=== PATIENT | female | born 1950 | race Caucasian/White ===

== ENCOUNTER 2016-09-29 11:36 | Inpatient (IN) ==
[2016-09-29] MEDS ORDERED: ASPIRIN PO STA (11:55)
[2016-09-29] MEDS ORDERED: NITROGLYCERIN SL PRN (11:55)
[2016-09-29] MEDS ORDERED: CARDIZEM IV ONE (12:14)
--- NOTE | 2016-09-29 12:22 | ED EKG INTERP ---
EKG Interpretation - EKG Time of EKG reading by physician:: 11:57 EKG Read and Signed by:: Gulshan Nagel EKG Interpretation (*Must complete 3 of following elements*): Abnormal Rate: 140 Rhythm: atrial fibrillation with rapid ventricular response QRS: normal ST Wave: non-specific ST changes Physician Attestation
[2016-09-29] MEDS: CARDIZEM 100 MG/NS 100 ML IV SCH ×2 (12:34→22:04)
[2016-09-29 12:42] LABS: MANUAL DIFF NEEDED? NO
[2016-09-29 13:06] LABS: BASO% 0.6 % (0.0-0.8); EOS# 0.14 X1000 (0.0-0.7); EOS% 2.2 % (0.0-10.0); HEMATOCRIT 40.9 % (37.0-47.0); HEMOGLOBIN 13.2 g/dL (12.0-16.0); LYMPH# 1.33 X1000 (1.2-3.4); LYMPH% 20.7 % (20.5-51.1); MCH 31.3 PG (27-31); MCHC 32.3 g/dL (33-37); MCV 96.9 FL (81-99); MONO% 7.8 % (1.7-9.3); MPV 10.6 FL (7.4-10.4); NEUT% 68.7 % (42.2-75.2); PLT 191 X1000 (130-400); RBC 4.22 XMIL (4.2-5.4)
[2016-09-29 13:15] LABS: PTT 36.2 Seconds (22.0-36.0)
[2016-09-29 13:23] LABS: AGAP 13; ALBUMIN 3.8 g/dL (3.5-5.0); ALKALINE PHOSPHATASE 85 U/L (32-104); BUN 9 mg/dL (8-22); CALCIUM 8.5 mg/dL (8.8-10.2); CHLORIDE 100 mmol/L (98-107); CK PROFILE 66 U/L (24-173); COSMO 294; GOT 23 U/L (10-30); GPT 15 U/L (10-36); MAGNESIUM 1.9 mg/dL (1.5-2.7); POTASSIUM 4.4 mmol/L (3.5-5.1); SODIUM 136 mmol/L (136-145); TCO2 23 mmol/L (25-35); TOTAL BILIRUBIN 1.06 mg/dL (0.20-1.00); TOTAL PROTEIN 6.4 g/dL (6.3-8.3)
[2016-09-29 13:24] LABS: INR 2.25; PROTIME 24.1 Seconds (9.2-11.7)
[2016-09-29] MEDS ORDERED: HUMULIN R IV ONE (13:28)
--- NOTE | 2016-09-29 14:50 | Diag Imaging Result Document ---
PROCEDURE NAME: CHEST-PORTABLE - 09/29/2016 SINGLE FRONTAL RADIOGRAPH OF THE CHEST: COMPARISON: 08/23/2016. FINDINGS: Inspiration is suboptimal. The lungs are grossly clear. There is no definite pleural fluid collection. Median sternotomy wires are noted. Cardiac silhouette is grossly stable. IMPRESSION: No definite acute pathology by plain radiograph.
--- NOTE | 2016-09-29 14:57 | PROVIDER DOCUMENTATION ---
HPI-Cardiac General - General Chief Complaint: Chest Pain Stated Complaint: CP Time Seen by Provider: 09/29/16 12:11 Source: patient Allergies/Adverse Reactions: Patient Allergies Allergy/AdvReac Type Severity Reaction Status Date / Time Beta-Blockers Allergy Severe bronchospas Verified 09/29/16 12:48 (Beta-Adrenergic Bloc m Home Medications: Glipizide [Glucotrol] 10 mg PO BID 06/29/12 Spironolactone [Aldactone] 25 mg PO DAILY 06/29/12 Latanoprost 0.005% Oph Soln [Xalatan 0.005% Oph Soln] 1 drop BOTH EYES QHS 07/31 Warfarin [Coumadin] 2 mg PO QHS 02/04/14 Clonidine HCl [Clonidine HCl ER] 0.1 mg PO BID 06/29/16 Insulin Lispro [Humalog] 15 unit SQ TID 06/29/16 Metformin [Glucophage] 500 mg PO 4XDAY 06/29/16 Potassium Chloride 10 meq PO QAM 06/29/16 Terconazole 80 mg VG QAM 06/29/16 Digoxin 125 mcg PO DAILY 08/23/16 Diltiazem HCl [Cardizem Cd] 120 mg PO HS 08/23/16 - History of Present Illness-Cardiac Nature of Presenting Problem: 66 yo F presents to ED with cc of chest discomfort, tachycardia, and mild dyspnea. Pt has hx of Afib, HTN, and IDDM. Upon arrival pt is in no apparent distress. Quality of Pain: reports: fullness Onset/Duration: abrupt Timing: gone now Context/Activities at Onset: reports: none History of arrythmia: reports: A-Fib Prior Chest Pain/Cardiac Workup: reports: echocardiography Associated Symptoms: reports: shortness of breath. denies: abdominal pain, back pain Similar Symptoms Previously?: Yes Review of Systems - Adult - REVIEW OF SYSTEMS - ADULT Constitutional: reports: no symptoms reported. denies: chills, fever Eyes: reports: no symptoms reported. denies: discharge, dry eyes Ears, Nose, Mouth & Throat: reports: no symptoms reported. denies: ear pain, nose pain Cardiovascular: reports: chest pain, irregular heart rate, orthopnea, palpitations Respiratory: reports: no symptoms reported. denies: cough, hemoptysis Gastrointestinal: reports: no symptoms reported. denies: abdominal pain, hematemesis Genitourinary: reports: no symptoms reported. denies: dysuria, discharge Musculoskeletal: reports: no symptoms reported. denies: bone pain, back pain Integumentary: reports: no symptoms reported. denies: hives, itching Neurological: reports: no symptoms reported. denies: ataxia, dizziness/vertigo Psychiatric: reports: no symptoms reported. denies: anxiety, anti-depressant use Endocrine: reports: no symptoms reported. denies: cold intolerance, heat intolerance Hematologic/Lymphatic: reports: no symptoms reported. denies: blood clots, easy bruising Allergic/Immunologic: reports: no symptoms reported. denies: allergic reactions , eczema All Other Systems: Reviewed and Negative Past History - Adult - PAST MEDICAL HISTORY-ADULT Review of Records: reports: Old Records Reviewed, Nursing Assessment Review, Medications Reviewed Cardiovascular: reports: A-Fib, CHF, HTN, heart valve problem, hyperlipidemia Endocrine/Immune: reports: Diabetes, other (glacuoma, sleep apena) Diabetes controlled by:: Insulin Dependent - PRIOR SURGERIES/PROCEDURES Surgical/Procedure History: reports: CABG, tonsillectomy, other (Valve replacement) - PRIOR HOSPITALIZATIONS Prior Hospitalizations: reports: for similar symptoms - IMMUNIZATION STATUS Childhood Immunizations: See Nurse Assessment Flu Vaccine: See Nurse Assessment - FAMILY HISTORY Family History: reviewed, not pertinent Physical Exam-General - PHYSICAL EXAM-ADULT Initial Vital Signs Reviewed: Yes - CONSTITUTIONAL General Appearance: appears well, alert, no apparent distress - EYES Eyes: PERRL/EOMI, pink conjunctivae - HEAD, EARS, NOSE, MOUTH & THROAT HENMT: normocephalic/atraumatic, moist mucous membranes - NECK Neck: non-tender, full range of motion - RESPIRATORY Respiratory: chest non-tender, lungs clear, normal breath sounds - CARDIOVASCULAR Cardiovascular: tachycardia, irregularly irregular - GASTROINTESTINAL (ABDOMEN) Abdominal Exam: non tender, soft - LYMPHATIC Lymphatic: no adenopathy - MUSCULOSKELETAL Back Exam: normal inspection, no vertebral tenderness Extremity: normal range of motion, non-tender, normal gait - SKIN Integumentary: rash (Ringworm left dorsal toes) - NEUROLOGIC Neurologic: grossly normal, no motor/sensory deficits - PSYCHIATRIC Psych/Mental Status: normal mood/affect, normal thought content, normal thought process, oriented x 3 Progress - PLAN OF CARE/RESULTS Progress/Plan/Lab Results: Vital Signs - 24 hr 09/29/16 09/29/16 12:06 13:06 Temperature 97.7 F Pulse Rate 143 H 104 H Respiratory 16 18 Rate Blood Pressure 129/89 121/88 O2 Sat by Pulse 97 98 Oximetry Orders Category Date Time Status Cardiac Monitoring DIRECTED Care 09/29/16 11:55 Active FSBS [Finger Stick Blood Sugar (ED)] DIRECTED Care 09/29/16 14:09 Active Saline Loc NOW Care 09/29/16 11:55 Active cxr [CHEST-PORTABLE] [RAD] Stat Exams 09/29/16 12:30 Draft CBC WITH ELECTRONIC DIFF [HEME] Stat Lab 09/29/16 12:20 Completed CK PROFILE [SP CHEM] Stat Lab 09/29/16 12:20 Completed COMPREHENSIVE METABOLIC PANEL [CHEM] Stat Lab 09/29/16 12:20 Completed D-DIMER [CHEM] Stat Lab 09/29/16 12:20 Completed MAGNESIUM [CHEM] Stat Lab 09/29/16 12:20 Completed PRO B-NATRIURETIC PEPTIDE Stat Lab 09/29/16 12:20 Completed PROTIME WITH INR [COAG] Stat Lab 09/29/16 12:20 Completed PTT [COAG] Stat Lab 09/29/16 12:20 Completed TROPONIN T Stat Lab 09/29/16 12:20 Completed Aspirin Med 09/29/16 11:55 Discontinued 325 mg PO STAT STA Diltiazem 100 mg/Ns [Cardizem 100 mg/Ns] 100 ml Med 09/29/16 12:15 Active IV 10 mg/hr Diltiazem [Cardizem] Med 09/29/16 12:14 Discontinued 20 mg IV NOW ONE Insulin Human Regular [Humulin R] Med 09/29/16 13:28 Discontinued 10 unit IV NOW ONE Nitroglycerin Sl [Nitroglycerin] Med 09/29/16 11:55 Active 0.4 mg SL Q5M PRN PRN EKG [EKG] Stat Ther 09/29/16 11:55 Ordered Laboratory Tests 09/29/16 09/29/16 09/29/16 12:20 12:20 12:20 WBC 6.42 RBC 4.22 Hgb 13.2 Hct 40.9 MCV 96.9 MCH 31.3 H MCHC 32.3 L RDW Std Deviation 15.4 H Plt Count 191 MPV 10.6 H Neut % (Auto) 68.7 Lymph % (Auto) 20.7 [place] % (Auto) 7.8 Eos % (Auto) 2.2 Baso % (Auto) 0.6 Neut # (Auto) 4.41 Lymph # (Auto) 1.33 [place] # (Auto) 0.50 Eos # (Auto) 0.14 Baso # (Auto) 0.04 PT INR PTT (Actin FS) D-Dimer 0.30 Sodium 136 Potassium 4.4 Chloride 100 Carbon Dioxide 23 L Anion Gap 13 BUN 9 Creatinine 0.9 Estimated GFR/1.73 m2 > 60 BUN/Creatinine Ratio 10 Glucose 520 H* Calculated Osmolality 294 Calcium 8.5 L Magnesium 1.9 Total Bilirubin 1.06 H AST 23 ALT 15 Alkaline Phosphatase 85 Creatine Kinase 66 Troponin T Cxl-[id number]-Vboedzvqgat Pept Total Protein 6.4 Albumin 3.8 Globulin 2.6 Albumin/Globulin Ratio 1.5 09/29/16 09/29/16 09/29/16 12:20 12:20 12:20 WBC RBC Hgb Hct MCV MCH MCHC RDW Std Deviation Plt Count MPV Neut % (Auto) Lymph % (Auto) [place] % (Auto) Eos % (Auto) Baso % (Auto) Neut # (Auto) Lymph # (Auto) [place] # (Auto) Eos # (Auto) Baso # (Auto) PT 24.1 H INR 2.25 PTT (Actin FS) 36.2 H D-Dimer Sodium Potassium Chloride Carbon Dioxide Anion Gap BUN Creatinine Estimated GFR/1.73 m2 BUN/Creatinine Ratio Glucose Calculated Osmolality Calcium Magnesium Total Bilirubin AST ALT Alkaline Phosphatase Creatine Kinase Troponin T < 0.010 Ftm-M-Qkbrnoaddle Pept 708 H Total Protein Albumin Globulin Albumin/Globulin Ratio - XRAY 1 XRAY Study: Chest XRAY Interpretation: NAD - CONSULTS/PCP/HOSPITALIST Notification #1 *Consult/PCP/Hospitalist*: Dr. Blount Time Discussed: 15:10 Reason/Comments: PCP Consult Disposition: other Attestation - Scribe Verification/Attestation Scribe:: Taryn Goyal Acting as Scribe for:: Gulshan Nagel Scribe documention review:: This chart was documented by a scribe and accurately reflects the service the provider performed and the decisions made by the provider.
[2016-09-29] MEDS: HUMALOG SUBQ SCH (17:51)
[2016-09-29] MEDS ORDERED: MIRALAX PO PRN (18:08)
--- NOTE | 2016-09-29 18:57 | HISTORY AND PHYSICAL ---
CHIEF COMPLAINT: Chest pain and heart palpitations. HISTORY OF PRESENT ILLNESS: The patient is a 66-year-old, white female with previous history of atrial fibrillation. She has had to be cardioverted in the past. Two days ago she started having irregular heartbeats. She had run out of her Multaq that had been started initially by her cardroom worker. She came in the office 1 day and I actually wrote her a prescription for it to keep her from having to go to see the cardroom worker that day to get her prescription. She never had it refilled. I am not sure whether there were refills on it or not. Generally I would put refills on unless I thought she was going to eventually go back to the cardroom worker for her refills. She did not check this and she did not call my office to see about my coverage giving her a prescription. She says [facility] but the call was not returned so she was a few days off of the Multaq and then apparently went into atrial fibrillation and today developed a very fast heart rate of about 140 beats per minute. She was placed on a Cardizem drip in the emergency room to control her rate and she was given insulin in that she is diabetic and her blood sugar was 520. PAST HISTORY INCLUDES: Diabetes mellitus, hypertension, glaucoma, status post aortic valve replacement, kidney disease. SURGICAL HISTORY: Includes cataract surgery, tonsillectomy, right ankle surgery, rotator cuff repair, hemorrhoidectomy and a valve replacement. FAMILY HISTORY: Shows father had heart disease. Mother had Alzheimer's disease and heart disease. Father had prostate cancer and had diabetes. Father had hypertension. Cousins had kidney failure. SOCIAL HISTORY: Has never used tobacco or alcohol. ALLERGIES: Include beta blockers, as she gets a difficulty breathing with these so it is not a true allergy but the side effect as it makes her heart failure worse and some of her COPD worse and she has had some asthma/COPD. 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 She has sleep apnea. HOME MEDICATIONS: Include Lantus insulin 35 units in the morning, 65 units at bedtime. Spironolactone 25 mg daily. Xalatan 0.005% 1 drop to each eye at bedtime. Symbicort 160/4.5, 2 puffs every 12 hours. Potassium chloride 10 mEq once daily. Estrace cream. Clonidine 0.1 mg twice daily for blood pressure. Lasix 40 mg by mouth on Mondays and . Cardizem CD 300 mg tablet daily and a 120 mg tablet daily. Coumadin 2 mg daily at bedtime. Multaq 400 mg p.o. b.i.d. Metformin 500 mg p.o. q.i.d. Colace 1 mg p.o. b.i.d. Digoxin 125 mcg daily. Aspirin 81 mg daily. Pravastatin 80 mg daily. MiraLAX 17 g daily. Glipizide 10 mg p.o. b.i.d. Humalog 15 mg subcutaneously 3 times a day with meals or with each meal. That is what we have listed as her medications. REVIEW OF SYSTEMS: Neurological: Denies headaches, seizures, visual problems, hearing problems. Pulmonary: Denies cough, wheezing but has had some chest pain and heart palpitations. Cardiovascular: Has had heart palpitations, chest pains. GI: Denies hematochezia, hematemesis, melena, constipation, diarrhea. : Denies any difficulty with urination. Musculoskeletal: Has had some osteoarthritis symptoms at times. Does not bother her too badly. Endocrine: Does have diabetes. Has had a thyrotoxicosis in the past when she was on amiodarone. PHYSICAL EXAMINATION: Pulse was 143 beats per minute and irregularly irregular when she first came emergency room. Blood pressure 129/89, respirations 16, O2 saturation was 97%. Since her Cardizem drip her pulse rate is down to 98 beats per minute and blood pressure is stable. HEENT: She is normocephalic. EOMs intact. PERRLA. Throat clear. Fundi are benign. NECK: Supple without thyromegaly, lymphadenopathy, or carotid bruits. LUNGS: Clear to auscultation and percussion without rhonchi, rales, or wheezes. HEART: Irregularly irregular without murmurs, gallops, or friction rubs. ABDOMEN: Soft. Active bowel sounds. No organomegaly or tenderness. LYMPHATIC: Lymph nodes are nonpalpable in the cervical and supraclavicular areas. INTEGUMENT: Shows no lesions consistent with melanoma or other skin cancers. NEUROLOGICAL: Cranial nerves 2-12 intact grossly. Sensory and motor intact. Reflexes 1+ all. LABORATORY: Shows a white count of 6420, hemoglobin 13.2, hematocrit 40.9, platelet count 191,000. Pro time is 24.1, INR is 2.25, PTT is 36.2. D-dimer is 0.30. Chemistry profile is essentially normal except for a blood sugar of 520. She has been given some insulin. ProBNP was slightly up at 708. Troponin was less than 0.010. ASSESSMENT: Atrial fibrillation with rapid ventricular response. SECONDARY DIAGNOSES: Of diabetes mellitus uncontrolled, glaucoma, hypertension, status post aortic valve replacement, asthma/COPD, hyperlipidemia. PLAN: We will admit and consult Cardiology. Is on a Cardizem drip. Will restart Multaq. Will control diabetes.
[2016-09-29] MEDS: COUMADIN PO SCH (20:43)
[2016-09-29] MEDS: HUMULIN R SUBQ SCH (20:43)
[2016-09-29] MEDS: GLUCOPHAGE PO SCH (20:43)
[2016-09-29] MEDS: COLACE PO SCH (20:43)
[2016-09-29] MEDS: CARDIZEM CD PO SCH (20:43)
[2016-09-29] MEDS: XALATAN 0.005% OPH SOLN BOTH EYES SCH (20:44)
[2016-09-29] MEDS: PRAVACHOL PO SCH (20:52)
[2016-09-29] MEDS: MULTAQ PO SCH (20:56)
[2016-09-29] MEDS ORDERED: TYLENOL PO PRN (22:44)
[2016-09-30] MEDS ORDERED: G.I. COCKTAIL PO ONE (00:14)
[2016-09-30] MEDS ORDERED: BLISTEX MEDICATED BERRY LIP BALM TOP PRN (04:02)
[2016-09-30] MEDS: NORCO-5 PO PRN ×3 (04:10→18:25)
--- NOTE | 2016-09-30 06:08 | EKG Report ---
Test Performed on : 09/29/2016 11:57:51 AM Test Reason : Chest Pain Blood Pressure : / mmHG Vent. Rate : 140 BPM Atrial Rate : 131 BPM P-R Int : 000 ms QRS Dur : 090 ms QT Int : 318 ms P-R-T Axes : 000 -25 128 degrees QTc Int : 485 ms Atrial fibrillation. with rapid ventricular response. ST & T wave abnormality, consider lateral ischemia Abnormal ECG When compared with ECG of 24-AUG-2016 12:43, Atrial fibrillation. has replaced Sinus rhythm. Vent. rate has increased BY 65 BPM Unconfirmed Result
[2016-09-30] MEDS: HUMULIN R SUBQ SCH ×4 (06:25→21:00)
[2016-09-30] MEDS: CARDIZEM 100 MG/NS 100 ML IV SCH (07:38)
--- NOTE | 2016-09-30 08:21 | EKG Report ---
Test Performed on : 09/29/2016 10:14:35 PM Test Reason : Done by RT/No order in [facility] Blood Pressure : / mmHG Vent. Rate : 083 BPM Atrial Rate : 082 BPM P-R Int : 000 ms QRS Dur : 092 ms QT Int : 392 ms P-R-T Axes : 000 -36 092 degrees QTc Int : 460 ms Atrial fibrillation. Left axis deviation with left anterior fasicular block (LAFB) Nonspecific T wave abnormality Abnormal ECG When compared with ECG of 29-SEP-2016 11:57, (Unconfirmed) ST less depressed in in high-lateral leads 1 and AVL Afib is persistant but rate controlled Nonspecific T wave abnormality in far lateral leads Clinical Correlation advised Confirmed by Patrick Marti DO ([id number]) on 10/03/2016 3:43:53 PM
[2016-09-30] MEDS: HUMALOG SUBQ SCH ×3 (08:32→16:23)
[2016-09-30] MEDS: ASPIRIN PO SCH (08:32)
[2016-09-30] MEDS: COLACE PO SCH ×2 (08:32→20:15)
[2016-09-30] MEDS: GLUCOPHAGE PO SCH ×4 (08:32→20:15)
[2016-09-30] MEDS: LANOXIN PO SCH (08:32)
[2016-09-30] MEDS: MULTAQ PO SCH (08:33)
--- NOTE | 2016-09-30 08:57 | PROGRESS NOTE ---
DATE: 09/30/2016 CHIEF COMPLAINT: Patient says that she complains of a rash on her feet, but otherwise she is feeling better. OBJECTIVE: Vital Signs: Blood pressure is 127/90, respirations 18, pulse 88, temperature 98 degrees Fahrenheit. Heart: Irregularly irregular. She is still in atrial fibrillation. She is still on a Cardizem drip and she is started on oral Cardizem as well. We will taper her off of the Cardizem drip slowly. HEENT: She is normocephalic. PERRLA. Throat clear. Lungs: Clear to auscultation and percussion without rhonchi, rales, or wheezes. Heart: Irregularly irregular without murmurs, gallops, or friction rubs. Abdomen: Soft. Active bowel sounds without organomegaly or tenderness. Integument: This does show what looks like a fungal rash on the dorsum of her feet. We will start her on some Micatin cream. LABS: Blood sugar was 194, so that is under a little better control. PLAN: Continue care. Cardiology is to see, and we will see if they want to cardiovert her.
[2016-09-30] MEDS ORDERED: PATIENT'S OWN MED VAG SCH (09:00)
[2016-09-30] MEDS ORDERED: LASIX PO SCH (09:00)
[2016-09-30] MEDS: BAZA ANTIFUNGAL CREAM TOP SCH ×2 (09:25→20:14)
[2016-09-30] MEDS: CARDIZEM CD PO SCH ×3 (10:48→20:15)
[2016-09-30] MEDS: TOPROL XL PO SCH (13:21)
--- NOTE | 2016-09-30 13:32 | CONSULTATION ---
DATE OF CONSULTATION: 09/30/2016 REASON FOR CONSULTATION: Cardiology consulted for recurrent atrial fibrillation. HISTORY OF PRESENT ILLNESS: Ms. Doty is a 66-year-old, lady with history of recurrent atrial fibrillation, status post cardioversion times at least 4 times in the past and also has a bioprosthetic aortic valve replacement and comes with complaints of increasing palpitations. She was noted to have atrial fibrillation, rapid ventricular rate at a rate of 140 beats per minute. Started on a Cardizem drip. She has a significant history of having had problems with atrial fibrillation in the past. She was on amiodarone which resulted in thyrotoxicosis and as a result, amiodarone was discontinued. She was tried on flecainide. She is currently on Cardizem, digoxin and she was on Multaq following the last cardioversion. However, she missed the Multaq dose for a few days and she said she noticed increasing palpitations. She also has diabetes, has elevated blood sugars of 500 when she came in. She denies any chest pain. There is no dizziness. There is no syncope. She has shortness of breath which has been stable. She denies chest pain. PAST MEDICAL HISTORY: 1. Diabetes. 2. Hypertension. 3. Glaucoma. 4. Status post item bioprosthetic aortic valve replacement, Mario-Mendes on 03/09/2012. 5. Paroxysmal atrial fibrillation with repeated cardioversions in 2011, 03/06/2014, 03/15/2014. Last cardioversion in 07/21/2016. 6. She is on Coumadin therapy for stroke prophylaxis. 7. She had amiodarone induced thyrotoxicosis. 8. Failed atrial fibrillation with flecainide. 9. History of heart failure in the past. 10. She has bronchitis and COPD. 11. Hypertension. 12. Hyperlipidemia. 13. Diabetes. 14. Sleep apnea. 15. Last cardiac catheterization 03/02/2012, coronary arteries were normal. 16. Last ejection fraction by echocardiogram 06/30/2016, EF of 60%. Then she underwent a TENA cardioversion then. HOME MEDICATIONS: Include glipizide 10 mg p.o. b.i.d., spironolactone 25, Coumadin 4 mg and 2 mg as directed, terconazole, metformin 500 mg 4 tablets a day, clonidine 0.1 b.i.d., potassium supplements 10, insulin lispro 15 subcu t.i.d., Cardizem 300 mg p.o. daily, dronedarone 400 mg p.o. t.i.d., Lasix 40 mg. Insulin Lantus, pravastatin 80, aspirin 81 mg a day. ALLERGIES: With beta-blockers in the past she had bronchitis and she says she had some wheezing. PHYSICAL EXAMINATION: Vital signs: Blood pressure was 123/64. She was on a Cardizem drip. Heart rate 80-90. Neck: Jugular venous pressure was normal. Heart: First and second heart sounds were heard. There is no S3 gallop. Respiratory System: Normal air entry. There is no crepitations or rhonchi. Abdomen: Soft, obese, nontender. There was no guarding or rigidity. Bowel sounds were heard. Central nervous system: Alert and was moving all 4 extremities. Extremities: Examination of extremities revealed no pedal edema. HEENT: Atraumatic, normocephalic. Pupils were equal and reacting to light. LABORATORY EXAMINATION: Revealed sodium 136, potassium 4.4, BUN 9, creatinine 0.9. Glucose 520 when she came. Magnesium 1.9. Cardiac enzymes negative. INR 2.25. Digoxin level 0.5. ASSESSMENT: Ms. Shantal Mak is a 66-year-old, lady with: 1. History of diabetes. 2. Severe aortic stenosis, status post aortic valve replacement bioprosthetic. 3. Paroxysmal atrial fibrillation, is admitted with atrial fibrillation with rapid ventricular rate. As far as atrial fibrillation, she has had at least 5 cardioversions in the past. On amiodarone, she had thyrotoxicosis which was discontinued. She had failed on flecainide. She, following the last cardioversion in June 2016, was on Multaq. She missed a couple of days of Multaq. She is admitted with atrial fibrillation with rapid ventricular rate. She is on a Cardizem drip. She has an appointment to see electrophysiology in [place] in next 1-2 weeks as an outpatient. PLAN: I have discussed this with the electrophysiology colleagues in [place]. We will plan for rate control and continue the anticoagulation since she has an appointment to see them shortly. As far as medications are concerned, we will continue with the Cardizem p.o. and digoxin. With Multaq, she had been doing well, however, now that she is in atrial fibrillation, we will avoid the Multaq. For rate control, we will try her on beta blockers. She has had bronchitis in the past and she said she had some wheezing with beta blockers. Otherwise, we will see by instituting beta-blockade therapy if her shortness of breath does not worsen, if that would help control her rhythm. If her rate is controlled, we can discharge her home and make her follow up appointment to see electrophysiology in the next 1-2 weeks. She already has an appointment. I have not made any other changes to her medications other than discontinuing the Multaq. Thanks for the consult. We will follow hospital course.
[2016-09-30] MEDS: COUMADIN PO SCH (20:15)
[2016-09-30] MEDS: XALATAN 0.005% OPH SOLN BOTH EYES SCH (20:15)
[2016-09-30] MEDS: PRAVACHOL PO SCH (20:15)
[2016-09-30] MEDS ORDERED: ZOFRAN IV PRN (22:43)
[2016-10-01] MEDS: HUMULIN R SUBQ SCH (06:42)
[2016-10-01] MEDS: CARDIZEM CD PO SCH (08:00)
[2016-10-01] MEDS: TOPROL XL PO SCH (08:01)
[2016-10-01] MEDS: LANOXIN PO SCH (08:01)
[2016-10-01] MEDS: COLACE PO SCH (08:01)
[2016-10-01] MEDS: ASPIRIN PO SCH (08:01)
[2016-10-01] MEDS: GLUCOPHAGE PO SCH (08:01)
[2016-10-01] MEDS: HUMALOG SUBQ SCH (08:02)
[2016-10-01] MEDS: BAZA ANTIFUNGAL CREAM TOP SCH (08:05)
[2016-10-01 08:11] VITALS: BP 134/63
--- NOTE | 2016-10-01 21:35 | DISCHARGE SUMMARY ---
ADMISSION DATE: 09/29/2016 DISCHARGE DATE: 10/01/2016 FINAL DIAGNOSIS: Atrial fibrillation with rapid ventricular response. SECONDARY DIAGNOSES: 1. Adult onset diabetes mellitus. 2. Hypertension. 3. Glaucoma. 4. Status post aortic valve replacement. 5. Kidney disease. CONSULTATION: Alexis Mejias M.D., Cardiology. DISCHARGE MEDICATIONS: Admission medications less her Multaq. She will be on metoprolol succinate 50 mg daily. The patient has had some problems with beta- blockers at higher doses in the past with her heart failure getting worse and her asthma flaring up but she has had a dose yesterday and has had no problems with it thus far. Dr. Mejias wanted to try the beta-hina since we did not want to restart the Multaq and she was already in atrial fibrillation , and we were not trying to convert. We were just trying to control rate. The patient will be going as an outpatient to the [place] to an community engagement specialist for evaluation to see if she is a candidate for radiofrequency ablation. She has had multiple cardioversions in the past and continues to redevelop atrial fibrillation. HISTORY OF PRESENT ILLNESS: The patient is a 66-year-old, white female who came into the emergency room in atrial fibrillation with rapid ventricular response of 143 beats per minute. She was placed on a Cardizem drip to control her rate. She had been on Cardizem 420 mg daily at home in a divided dose already and will continue that. She is already anticoagulated and she is on digoxin. PHYSICAL EXAMINATION: Vital Signs: Stable. She has a heart rate in 60s to 70s and atrial fibrillation that is rate controlled. HEENT: She is normocephalic. PERRLA. Throat clear. Lungs: Clear to auscultation and percussion without rhonchi, rales, or wheezes. Heart: Regular rate and rhythm without murmurs, gallops, or friction rubs. Abdomen: Soft. Active bowel sounds. No organomegaly or tenderness. Neurological Examination: Intact grossly. FOLLOWUP: 1. I will see her back in my office in the next couple of weeks. 2. She has an appointment with the community engagement specialist on the 12th of this month. 3. She will need to follow up with Cardiology after that as well. Of note her blood sugars were a little high when she first came into the hospital, a little over 500, but have been much better after using a sliding scale. RUCHI
== END 2016-10-01 11:00 | disposition home or self-care (01) | DRG 309 ==
LOC: ED 11:36 → EDIPHOLD 16:18 → 3S 18:12
PROVIDERS: ADMIT Emergency Medicine; ATTEND Emergency Medicine
DX: I48.0 Paroxysmal atrial fibrillation (principal); I50.32 Chronic diastolic (congestive) heart failure; J44.9 Chronic obstructive pulmonary disease, unspecified; I11.0 Hypertensive heart disease with heart failure; E11.65 Type 2 diabetes mellitus with hyperglycemia; J45.909 Unspecified asthma, uncomplicated; B35.3 Tinea pedis; E78.5 Hyperlipidemia, unspecified; Z95.3 Presence of xenogenic heart valve; H40.9 Unspecified glaucoma; G47.30 Sleep apnea, unspecified; N28.9 Disorder of kidney and ureter, unspecified; Z82.49 Family history of ischemic heart disease and other diseases of the circulatory system; Z80.42 Family history of malignant neoplasm of prostate; Z83.3 Family history of diabetes mellitus; Z79.84 Long term (current) use of oral hypoglycemic drugs; Z79.01 Long term (current) use of anticoagulants; Z79.4 Long term (current) use of insulin; Z79.82 Long term (current) use of aspirin; Z79.899 Other long term (current) drug therapy; Z79.51 Long term (current) use of inhaled steroids
CPT/HCPCS: 71010; 80053; 80162; 82550; 82948; 83735; 83880; 84436; 84443; 84484; 85025; 85379; 85610; 85730; 93005; 93010; 96374; J1815

== ENCOUNTER 2016-10-04 08:42 | Emergency (ER) ==
[2016-10-04] MEDS ORDERED: ASPIRIN PO STA (08:44)
[2016-10-04 09:02] LABS: ALLEN TEST YES; BE 0.2 mmoll (-3.0-3.0); BLOOD TYPE ARTERIAL; DRAW SITE R RADIAL; MODALITY CANNULA; O2(CT) 15.9 mL/dL (15.0-23.0); PCO2(98.6) 38 mmHg (35-45); PO2(98.6) 81 mmHg (60-100); SAMPLE BLOOD; SAO2 100.5 % (95.0-100.0); THB 11.9 g/dL (11.5-17.4); pH(98.6) 7.42 (7.35-7.45)
[2016-10-04 09:25] LABS: MANUAL DIFF NEEDED? NO
[2016-10-04 09:28] LABS: BASO% 0.4 % (0.0-0.8); EOS# 0.17 X1000 (0.0-0.7); EOS% 2.2 % (0.0-10.0); HEMATOCRIT 39.1 % (37.0-47.0); HEMOGLOBIN 12.7 g/dL (12.0-16.0); IMM GRAN# 0.02 X1000 (0.0-0.04); IMM GRAN% 0.3 % (0.0-0.5); LYMPH# 1.22 X1000 (1.2-3.4); LYMPH% 15.9 % (20.5-51.1); MCH 30.9 PG (27-31); MCHC 32.5 g/dL (33-37); MCV 95.1 FL (81-99); MONO# 0.59 X1000 (0.11-0.59); MONO% 7.7 % (1.7-9.3); MPV 10.5 FL (7.4-10.4); NEUT% 73.5 % (42.2-75.2); PLT 202 X1000 (130-400); RBC 4.11 XMIL (4.2-5.4)
--- NOTE | 2016-10-04 09:30 | PROVIDER DOCUMENTATION ---
HPI-Chest Pain - General Source: patient - History of Present Illness-CP Location: reports: substernal Chest Pain Radiation: reports: no radiation Quality of Pain: reports: tightness Severity in ED: moderate Onset/Duration: abrupt, this morning Timing: improving Context/Activities at Onset: reports: none Modifying Factors: improves with: nothing Associated Symptoms: reports: shortness of breath. denies: back pain, fever/ chills, nausea, vomiting Nitro Today/Relief: 0.4 mg x 1, provided by EMS, complete relief Aspirin Treatment Today: 325 mg x 1, provided by ED Prior Chest Pain/Cardiac Workup: reports: cardiac cath (02/2012 with stent placement), stress test Similar Symptoms Previously?: Yes Recently Seen Here or By Another Healthcare Provider: Yes <Neto Silva - Last Filed: 10/04/16 10:52> <Cristiano Falk - Last Filed: 10/04/16 10:57> - General Chief Complaint: Chest Pain Stated Complaint: CP, SOB Time Seen by Provider: 10/04/16 08:42 Allergies/Adverse Reactions: Patient Allergies Allergy/AdvReac Type Severity Reaction Status Date / Time Beta-Blockers Allergy Severe bronchospas Verified 10/04/16 09:35 (Beta-Adrenergic Bloc m Home Medications: Glipizide [Glucotrol] 10 mg PO BID 06/29/12 Spironolactone [Aldactone] 25 mg PO DAILY 06/29/12 Latanoprost 0.005% Oph Soln [Xalatan 0.005% Oph Soln] 1 drop BOTH EYES QHS 07/31 Warfarin [Coumadin] 2 mg PO QHS 02/04/14 Clonidine HCl [Clonidine HCl ER] 0.1 mg PO BID 06/29/16 Insulin Lispro [Humalog] 15 unit SQ TID 06/29/16 Metformin [Glucophage] 500 mg PO 4XDAY 06/29/16 Potassium Chloride 10 meq PO QAM 06/29/16 Terconazole 80 mg VG QAM 06/29/16 Digoxin 125 mcg PO DAILY 08/23/16 Diltiazem HCl [Cardizem Cd] 120 mg PO HS 08/23/16 Hydrocodone/Acetaminophen [Perry 5-325 Tablet] 1 each PO Q4-6H PRN PRN 09/29/16 - History of Present Illness-CP Nature of Presenting Problem: patient is a 66 y/o F that presents with substernal chest pain since this am. patient was given nitro en route by EMS and relieved pain. she was admitted last week to the hospital with a-fib by . she has no n/v/d, shortness of breath. (Neto Silva) Review of Systems - Adult - REVIEW OF SYSTEMS - ADULT Constitutional: denies: chills, fever Eyes: reports: no symptoms reported Ears, Nose, Mouth & Throat: reports: no symptoms reported Cardiovascular: reports: chest pain. denies: palpitations Respiratory: denies: cough, wheezing Gastrointestinal: denies: abdominal pain, diarrhea, nausea, vomiting Genitourinary: reports: no symptoms reported Musculoskeletal: denies: back pain, joint pain, neck pain Integumentary: reports: no symptoms reported Neurological: denies: dizziness/vertigo, headache/migraines, syncope Psychiatric: reports: no symptoms reported Endocrine: reports: no symptoms reported Hematologic/Lymphatic: reports: no symptoms reported Allergic/Immunologic: reports: no symptoms reported All Other Systems: Reviewed and Negative <Neto Silva - Last Filed: 10/04/16 10:52> Past History - Adult - PAST MEDICAL HISTORY-ADULT Review of Records: reports: Old Records Reviewed, Nursing Assessment Review, Medications Reviewed Cardiovascular: reports: A-Fib, CHF, HTN, heart valve problem, hyperlipidemia Endocrine/Immune: reports: Diabetes, other (glacuoma, sleep apena) - PRIOR SURGERIES/PROCEDURES Surgical/Procedure History: reports: CABG, tonsillectomy, other (Valve replacement) - PRIOR HOSPITALIZATIONS Prior Hospitalizations: reports: for similar symptoms - IMMUNIZATION STATUS Childhood Immunizations: See Nurse Assessment Flu Vaccine: See Nurse Assessment - FAMILY HISTORY Family History: reviewed, not pertinent <Neto Silva - Last Filed: 10/04/16 10:52> Physical Exam-General - PHYSICAL EXAM-ADULT Initial Vital Signs Reviewed: Yes - CONSTITUTIONAL General Appearance: alert, no apparent distress - EYES Eyes: PERRL/EOMI, pink conjunctivae - HEAD, EARS, NOSE, MOUTH & THROAT HENMT: normocephalic/atraumatic, moist mucous membranes, normal ENT inspection - NECK Neck: full range of motion, normal inspection. negative: lymphadenopathy - RESPIRATORY Respiratory: lungs clear, normal breath sounds, no respiratory distress, no accessory muscle use - CARDIOVASCULAR Cardiovascular: no gallop, no JVD, no murmur - GASTROINTESTINAL (ABDOMEN) Abdominal Exam: normal bowel sounds, non tender, soft, no organomegaly, no pulsatile mass - MUSCULOSKELETAL Extremity: normal range of motion, normal inspection, no pedal edema, pelvis stable - SKIN Integumentary: normal color, warm/dry - NEUROLOGIC Neurologic: grossly normal, no motor/sensory deficits - PSYCHIATRIC Psych/Mental Status: normal mood/affect, normal thought content, normal thought process, oriented x 3 <Neto Silva - Last Filed: 10/04/16 10:52> Progress - EKG 1 Time of EKG reading by physician:: 08:52 EKG Read and Signed by:: Cristiano Falk EKG Interpretation (*Must complete 3 of following elements*): Abnormal Rate: 86 Rhythm: a-fib QRS: normal ST Wave: normal - XRAY 1 XRAY Study: Chest Impression: Abnormal XRAY Interpretation: stable chest, no pneumonia <Neto Silva - Last Filed: 10/04/16 10:52> - REASSESSMENT Reassessment #1 Time Reassessed: 10:54 Status: improving (Pt was discharged home X 2-[address] Mejias arranged an appointment with Cardiology on 10/[address] Blount, Pt' s PCP stopped by ER today, instructed to d/c pt home and follow up with PCP. Pt is not in pain on discharge and IV Lasx given for her CHF.) <Cristiano Falk - Last Filed: 10/04/16 10:57> - PLAN OF CARE/RESULTS Progress/Plan/Lab Results: plan of care-labs, [place], cxr (Neto Silva) Departure <Neto Silva - Last Filed: 10/04/16 10:52> - Departure Time of Disposition Order: 10:55 Certified Medical Emergency: Emergent <Cristiano Falk - Last Filed: 10/04/16 10:57> - Departure DIAGNOSIS: Atypical chest pain CHF exacerbation Qualifiers: Congestive heart failure type: unspecified congestive heart failure type Qualified Code(s): I50.9 - Heart failure, unspecified Disposition: HOME 01 Condition: Stable Additional Instructions: Follow up with [facility] on 10/07/16 as scheduled. Follow up with Dr. Blount in 1-2 days. Return to ER if your symptoms worsen. Attestation - Scribe Verification/Attestation Scribe:: Neto Silva Acting as Scribe for:: Cristiano Falk Scribe documention review:: This chart was documented by a scribe and accurately reflects the service the provider performed and the decisions made by the provider. <Neto Silva - Last Filed: 10/04/16 10:52> Physician Attestation - Physician Attestation I, the provider, attest to the following statement:: Cristiano Falk Physician documentation Attestation:: This documentation recorded by the scribe accurately reflects the service I personally performed and the decisions made by me. <Neto Silva - Last Filed: 10/04/16 10:52>
[2016-10-04 09:41] LABS: PTT 29.2 Seconds (22.0-36.0)
[2016-10-04 09:45] LABS: INR 2.99; PROTIME 32.1 Seconds (9.2-11.7)
--- NOTE | 2016-10-04 10:31 | Diag Imaging Result Document ---
PROCEDURE NAME: CHEST-PORTABLE - 10/04/2016 ERECT AP PORTABLE CHEST: TIME: 0925 hours. FINDINGS: There are degenerative changes in the glenohumeral joints and acromioclavicular joints bilaterally. There are sternotomy wires. The lungs are stable in appearance since 09/29/2016. The heart size remains slightly enlarged. IMPRESSION: Stable chest.
[2016-10-04 10:36] LABS: AGAP 15; ALBUMIN 3.5 g/dL (3.5-5.0); ALKALINE PHOSPHATASE 84 U/L (32-104); BUN 9 mg/dL (8-22); CALCIUM 8.7 mg/dL (8.8-10.2); CHLORIDE 100 mmol/L (98-107); CK PROFILE 43 U/L (24-173); COSMO 289; GOT 22 U/L (10-30); GPT 15 U/L (10-36); MAGNESIUM 1.7 mg/dL (1.5-2.7); POTASSIUM 4.3 mmol/L (3.5-5.1); SODIUM 139 mmol/L (136-145); TCO2 24 mmol/L (25-35); TOTAL BILIRUBIN 0.88 mg/dL (0.20-1.00); TOTAL PROTEIN 6.1 g/dL (6.3-8.3)
[2016-10-04] MEDS ORDERED: LASIX IV ONE (10:53)
[2016-10-04 11:13] VITALS: BP 148/113
--- NOTE | 2016-10-04 11:38 | EKG Report ---
Test Performed on : 10/04/2016 08:52:04 AM Test Reason : Chest Pain Blood Pressure : / mmHG Vent. Rate : 086 BPM Atrial Rate : 156 BPM P-R Int : 000 ms QRS Dur : 094 ms QT Int : 376 ms P-R-T Axes : 000 -10 077 degrees QTc Int : 449 ms Atrial fibrillation. Abnormal ECG When compared with ECG of 29-SEP-2016 22:14, Nonspecific T wave abnormality, improved in Lateral leads Unconfirmed Result
== END 2016-10-04 12:00 | disposition home or self-care (01) ==
LOC: EDBD → ED 08:42
DX: I50.9 Heart failure, unspecified (principal); R07.89 Other chest pain; Z79.899 Other long term (current) drug therapy; Z79.01 Long term (current) use of anticoagulants; Z79.4 Long term (current) use of insulin; I48.91 Unspecified atrial fibrillation; I10 Essential (primary) hypertension; E78.5 Hyperlipidemia, unspecified; E11.9 Type 2 diabetes mellitus without complications; Z95.1 Presence of aortocoronary bypass graft; Z95.2 Presence of prosthetic heart valve; R94.31 Abnormal electrocardiogram [ECG] [EKG]
CPT/HCPCS: 71010; 80053; 82550; 82805; 83735; 83880; 84484; 85025; 85379; 85610; 85730; 93005; 96374; J1940

== ENCOUNTER 2016-12-03 14:36 | Inpatient (IN) ==
[2016-12-03] MEDS: CARDIZEM 100 MG/NS 100 ML IV SCH ×2 (11:15→19:32)
[2016-12-03 11:32] LABS: MANUAL DIFF NEEDED? NO
[2016-12-03 11:51] LABS: BASO% 0.4 % (0.0-0.8); HEMATOCRIT 40.3 % (37.0-47.0); LYMPH# 1.56 X1000 (1.2-3.4); LYMPH% 18.6 % (20.5-51.1); MCHC 32.3 g/dL (33-37); MONO# 0.86 X1000 (0.11-0.59); MONO% 10.3 % (1.7-9.3); MPV 10.1 FL (7.4-10.4); NEUT% 64.7 % (42.2-75.2); PLT 268 X1000 (130-400)
--- NOTE | 2016-12-03 12:03 | ED EKG INTERP ---
EKG Interpretation - EKG Time of EKG reading by physician:: 11:23 EKG Read and Signed by:: Beto Salas EKG Interpretation (*Must complete 3 of following elements*): Abnormal Rate: 148 Rhythm: atrial fib with rvr [place]: normal ST Wave: normal Attestation - Scribe Verification/Attestation Scribe:: Brady Rojas Acting as Scribe for:: Beto Salas Scribe documention review:: This chart was documented by a scribe and accurately reflects the service the provider performed and the decisions made by the provider.
[2016-12-03 12:06] LABS: PROTIME 61.4 Seconds (9.2-11.7)
[2016-12-03 12:11] LABS: INR 6.24
[2016-12-03 12:39] LABS: AGAP 12; ALBUMIN 3.3 g/dL (3.5-5.0); ALKALINE PHOSPHATASE 77 U/L (32-104); BUN 9 mg/dL (8-22); CALCIUM 8.4 mg/dL (8.8-10.2); CHLORIDE 100 mmol/L (98-107); COSMO 280; GOT 17 U/L (10-30); GPT 12 U/L (10-36); POTASSIUM 4.9 mmol/L (3.5-5.1); SODIUM 136 mmol/L (136-145); TCO2 24 mmol/L (25-35); TOTAL BILIRUBIN 0.61 mg/dL (0.20-1.00); TOTAL PROTEIN 5.8 g/dL (6.3-8.3)
--- NOTE | 2016-12-03 12:48 | Diag Imaging Result Document ---
PROCEDURE NAME: CHEST-2 VIEWS - 12/03/2016 FRONTAL AND LATERAL CHEST, TWO VIEWS: COMPARISON: 11/08/2016. FINDINGS: A heart valve has been replaced. The heart is not enlarged. The vessels are not distended. No pneumonia. No pleural effusions. IMPRESSION: No acute abnormality.
[~2016-12-03 14:36] MED LIST: CARDIZEM 100 MG/NS 100 ML ONE; MIRALAX PO PRN; NITROGLYCERIN SL PRN
--- NOTE | 2016-12-03 14:39 | HISTORY AND PHYSICAL ---
CHIEF COMPLAINT: Swelling in legs and heart palpitations. HISTORY OF PRESENT ILLNESS: The patient is a 66-year-old, white female, who is being seen by her project superintendent Dr. Recio, when it was noted that her heart rate was very fast and she was having edema in her lower extremities. She was having atrial fibrillation with RVR. He felt that she needed to be admitted and called me to be the attending and him to be the architecture consultant. He sent her to the emergency room and she has been started on a Cardizem drip. He had been concerned that her swelling in her lower extremities has been worse, and he does have orders for proBNP and chest x-ray, but feels like this is congestive heart failure. 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 PAST SURGICAL HISTORY: Status post cataract surgery, tonsillectomy, right ankle surgery, rotator cuff repair and hemorrhoidectomy. FAMILY HISTORY: Positive for Alzheimer disease and heart disease with her mother, and prostate cancer, diabetes and heart disease with her father. SOCIAL HISTORY: Does not use alcohol or tobacco. ALLERGIES: She says that she has problems with beta blockers. She has actually been on a beta hina. It makes her wheeze more generally. She has had some signs of COPD, probably from asthma. REVIEW OF SYSTEMS: Neurological: Denies headaches, seizures, visual problems, hearing problems. Pulmonary: Denies any cough or wheezing at this time. No shortness of breath. Cardiovascular: Has had some heart palpitations. Denies chest pain. She has had intermittent atrial fibrillation and has been consulted for considering radiofrequency ablation, but has not had this yet. GI: Denies hematochezia, hematemesis, melena, constipation, diarrhea. : Denies any difficulty with urination. Endocrine: Does have diabetes and her hemoglobin A1c has been somewhat elevated at the office. We have been trying to regulate this. Patient does have a history of glaucoma. MEDICATIONS: She is on: 1. Aspirin 81 mg daily. 2. Clonidine 0.1 mg every 12 hours. 3. Diltiazem 120 mg q. 24 hours. 4. Furosemide 40 mg daily. 5. Glucotrol 10 mg daily. 6. She has been all Lantus 10. Did not know her dosage on that. 7. She is also on Humalog for sliding scale. 8. Metformin 500 mg. She is not sure how often she takes that. 9. She has been on some metoprolol 50 mg daily. 10. She has been on warfarin 4 mg daily. 11. Albuterol MDI as needed for wheezing. 12. Symbicort for wheezing as she had recent bronchitis. 13. Estradiol 1 mg daily. 14. She is on Xalatan ophthalmic solution. 15. She has nitroglycerin for chest pain. 16. Pravastatin 40 mg at bedtime. 17. MiraLAX 17 g a day. 18. Spironolactone 25 mg a day. PHYSICAL EXAMINATION: GENERAL: She is a slightly overweight 66-year-old in no apparent distress at this time. VITAL SIGNS: Apparently, when she came into the emergency room, the pulse rate was around 150 beats per minute. We have had several other checks at 142 beats per minute, 143 beats per minute, 137 beats per minute, even on the Cardizem drip. Her blood pressure is a little low at 93/59 on the Cardizem. Respirations 18 and temp 97.8 degrees Fahrenheit. HEENT: She is normocephalic, atraumatic. PERRLA. Throat clear. Fundi not seen well due to constriction of pupils. NECK: Supple without thyromegaly, lymphadenopathy, or carotid bruits. LUNGS: Clear to auscultation and percussion without rhonchi, rales, or wheezes. Chest x-ray is pending. HEART: Irregularly irregular and tachycardic. ABDOMEN: Soft. Active bowel sounds. No organomegaly or tenderness. PELVIC/RECTAL/BREAST: Exams are deferred at this time. INTEGUMENT: Shows no lesions consistent with melanoma or skin cancer. NEUROLOGICAL EXAM: Cranial nerves 2-12 intact grossly. Sensory and motor intact. Reflexes 1+ all. Did not have a monofilament to check her feet with at this time, but she was in the office just a few days ago, and the monofilament test at that time was normal. ADMITTING DIAGNOSES: 1. Atrial fibrillation with rapid ventricular response. 2. Uncontrolled congestive heart failure, systolic on diastolic, and acute on chronic. 3. Adult-onset diabetes mellitus. 4. Coagulopathy with an INR of a little over 6. 5. Hypertension. 6. Glaucoma. 7. Asthma. PLAN: We will try to control heart rate. We will try to resolve congestive heart failure. Will monitor blood sugars. I have consulted Dr. Recio, cardiology.
--- NOTE | 2016-12-03 14:56 | EKG Report ---
Test Performed on : 12/03/2016 11:23:57 AM Test Reason : No Order in T[facility] Blood Pressure : / mmHG Vent. Rate : 148 BPM Atrial Rate : 133 BPM P-R Int : 000 ms QRS Dur : 092 ms QT Int : 328 ms P-R-T Axes : 000 -26 079 degrees QTc Int : 514 ms Atrial fibrillation. with rapid ventricular response. Abnormal ECG When compared with ECG of 10-NOV-2016 14:33, Atrial fibrillation. has replaced Sinus rhythm. Vent. rate has increased BY 96 BPM T wave inversion no longer evident in Inferior leads Unconfirmed Result
[2016-12-03] MEDS: VENTOLIN HFA INH PRN (16:00)
[2016-12-03] MEDS: HUMULIN R SUBQ SCH ×2 (16:45→20:33)
[2016-12-03] MEDS: PRAVACHOL PO SCH (20:33)
[2016-12-03] MEDS ORDERED: RESTORIL PO PRN (21:00)
[2016-12-03] MEDS: XALATAN 0.005% OPH SOLN BOTH EYES SCH (21:35)
[2016-12-03] MEDS: SYMBICORT 160/4.5 MICROGM INHALER INH SCH (22:15)
[2016-12-03] MEDS: TYLENOL PO PRN (22:22)
[2016-12-04] MEDS: CARDIZEM 100 MG/NS 100 ML IV SCH ×2 (04:44→12:12)
[2016-12-04 05:45] LABS: MANUAL DIFF NEEDED? NO
[2016-12-04 05:53] LABS: BASO% 0.4 % (0.0-0.8); EOS% 6.3 % (0.0-10.0); HEMATOCRIT 36.8 % (37.0-47.0); HEMOGLOBIN 12.3 g/dL (12.0-16.0); IMM GRAN# 0.02 X1000 (0.0-0.04); IMM GRAN% 0.3 % (0.0-0.5); LYMPH# 1.33 X1000 (1.2-3.4); LYMPH% 16.8 % (20.5-51.1); MCH 31.5 PG (27-31); MCHC 33.4 g/dL (33-37); MCV 94.4 FL (81-99); MONO# 0.76 X1000 (0.11-0.59); MONO% 9.6 % (1.7-9.3); MPV 10.1 FL (7.4-10.4); NEUT% 66.6 % (42.2-75.2); PLT 234 X1000 (130-400)
[2016-12-04] MEDS: HUMULIN R SUBQ SCH ×4 (06:38→20:51)
[2016-12-04 07:09] LABS: AGAP 14; BUN 10 mg/dL (8-22); CALCIUM 9.2 mg/dL (8.8-10.2); CHLORIDE 102 mmol/L (98-107); COSMO 278; POTASSIUM 3.7 mmol/L (3.5-5.1); SODIUM 139 mmol/L (136-145); TCO2 23 mmol/L (25-35)
[2016-12-04] MEDS: VENTOLIN HFA INH PRN (08:07)
[2016-12-04] MEDS: ALDACTONE PO SCH (09:20)
[2016-12-04] MEDS: KLOR-CON PO SCH (09:20)
[2016-12-04] MEDS: TYLENOL PO PRN ×2 (12:17→20:51)
--- NOTE | 2016-12-04 13:02 | PROGRESS NOTE ---
DATE: 12/04/2016 SUBJECTIVE: Ms. Mak reports she feels a little bit better today. She continues on a Cardizem drip. Her atrial fibrillation has come under better control. She is not having any orthopnea presently. PHYSICAL EXAMINATION: She is afebrile. Her heart rate is 83. Her blood pressure is 100/68. Her heart rates since 4 p.m. yesterday have been largely in the 60s to 90s. Her I's and O's are roughly flat. Generally: No acute distress. Cardiovascular: She is in an irregularly irregular rhythm. It is rate controlled. She has no murmurs. She has no lower extremity edema and warm and well perfused lower extremities. Her chest exam sounds clear. She has no increased work of breathing. Abdomen: Soft, nontender, nondistended. She has no obvious organomegaly. PERTINENT DATA: Her white count 7.9, her hematocrit is 36.8, platelet count is 234,000, her INR yesterday was 6.2. Sodium is 139, potassium 3.7, her BUN is 10, creatinine 0.6. Her proBNP yesterday was 1791. ASSESSMENT: 1. Status post bioprosthetic AVR. 2. Atrial fibrillation, symptomatic. PLAN: We will continue on the Cardizem. Tentative plans for cardioversion on Tuesday. I will check an INR tomorrow. We will likely consider re-initiation of her Coumadin. She is also tentatively planned for AV node ablation and permanent pacemaker implantation next week with Dr. Godwin.
--- NOTE | 2016-12-04 14:01 | PROGRESS NOTE ---
DATE: 12/04/2016 SUBJECTIVE: The patient says she feels short of breath when she gets up and tries to go the bathroom so she wanted a bedside commode which the nurses have already provided for her. OBJECTIVE: Blood pressure is 113/92, respirations 22, pulse 90, temp 97.8 degrees Fahrenheit. INR and ProTime are pending. ProBNP was elevated at 1791. Blood sugar this morning was 158.HEENT: She is normocephalic, intact. PERRLA. Throat clear. Lungs: Clear to auscultation and percussion without rhonchi, rales, or wheezes. Heart: Irregularly irregular without murmurs, gallops, or friction rubs. Abdomen: Soft. Active bowel sounds. No organomegaly or tenderness. Neurological: Intact grossly. Cardiology has been consulted and we will see if she will convert with her Cardizem drip to a normal sinus rhythm or whether she will need cardioversion again. She has been scheduled to see electrolysist about radiofrequency ablation. ASSESSMENT: 1. Atrial fibrillation with rapid ventricular response. Now rate is under better control. 2. CHF. 3. Adult-onset diabetes mellitus. 4. Hypertension. 5. Status post aortic valve replacement. PLAN: Continue care. Cardiology to follow.
[2016-12-04] MEDS: XALATAN 0.005% OPH SOLN BOTH EYES SCH (20:51)
[2016-12-04] MEDS: PRAVACHOL PO SCH (20:51)
[2016-12-04] MEDS: SYMBICORT 160/4.5 MICROGM INHALER INH SCH (21:11)
[2016-12-05] MEDS ORDERED: BLISTEX MEDICATED BERRY LIP BALM TOP PRN (04:13)
[2016-12-05] MEDS: CARDIZEM 100 MG/NS 100 ML IV SCH ×3 (04:15→23:25)
[2016-12-05] MEDS: SYMBICORT 160/4.5 MICROGM INHALER INH SCH ×3 (04:52→19:30)
[2016-12-05 05:29] LABS: MANUAL DIFF NEEDED? NO
[2016-12-05 05:47] LABS: BASO% 0.2 % (0.0-0.8); EOS# 0.47 X1000 (0.0-0.7); EOS% 5.7 % (0.0-10.0); HEMATOCRIT 36.1 % (37.0-47.0); HEMOGLOBIN 11.9 g/dL (12.0-16.0); IMM GRAN# 0.03 X1000 (0.0-0.04); IMM GRAN% 0.4 % (0.0-0.5); LYMPH# 1.74 X1000 (1.2-3.4); LYMPH% 21.2 % (20.5-51.1); MCH 31.2 PG (27-31); MCV 94.5 FL (81-99); MONO# 0.75 X1000 (0.11-0.59); MONO% 9.1 % (1.7-9.3); MPV 10.2 FL (7.4-10.4); NEUT% 63.4 % (42.2-75.2); PLT 247 X1000 (130-400); RBC 3.82 XMIL (4.2-5.4)
[2016-12-05 05:59] LABS: INR 2.97; PROTIME 29.7 Seconds (9.2-11.7)
[2016-12-05] MEDS: HUMULIN R SUBQ SCH ×4 (06:01→21:03)
[2016-12-05 06:22] LABS: AGAP 12; BUN 7 mg/dL (8-22); CALCIUM 8.6 mg/dL (8.8-10.2); CHLORIDE 103 mmol/L (98-107); COSMO 276; POTASSIUM 3.8 mmol/L (3.5-5.1); SODIUM 138 mmol/L (136-145); TCO2 23 mmol/L (25-35)
[2016-12-05] MEDS: KLOR-CON PO SCH (08:32)
[2016-12-05] MEDS: ALDACTONE PO SCH (08:32)
[2016-12-05 10:10] LABS: INR 2.66; PROTIME 26.6 Seconds (9.2-11.7)
[2016-12-05] MEDS: ZOFRAN ODT PO PRN ×2 (11:03→21:00)
--- NOTE | 2016-12-05 12:10 | PROGRESS NOTE ---
DATE: 12/05/2016 SUBJECTIVE: Ms. Mak reports she is doing well today. OBJECTIVE: Vital signs: She is afebrile, heart rate of 117, blood pressure 132/82. General: No acute distress. Cardiovascular: She is in an irregularly irregular rhythm consistent with atrial fibrillation on her telemetry. She has no lower extremity edema. Chest: Clear bilaterally. She has no increased work of breathing. Abdomen: Soft, nontender. PERTINENT DATA: White count is 8.2, hematocrit 36.1, platelet count 247,000. Her INR is 2.97 today. Sodium 138, potassium 3.8, her BUN is 7, creatinine 0.7. ASSESSMENT: Atrial fibrillation. PLAN: We will proceed with TENA cardioversion in the morning. I will make her NPO after midnight except for medications. I will tentatively schedule TENA cardioversion for Dr. Recio to perform in the morning. Labs for the morning have already been ordered.
--- NOTE | 2016-12-05 13:45 | PROGRESS NOTE ---
DATE: 12/05/2016 SUBJECTIVE: The patient says she still has a little chest discomfort. Her heart rate got up into the 130s last night. Now she is running in the 80s and 90s for ventricular rate on her monitor. Her INR has come back down to 2.6. She tells me that she was on generally 6 mg of warfarin in the evenings except for 2 days when she stood 9 mg. This is handled [facility]. OBJECTIVE: Vital signs: Blood pressure 132/82, respirations 18, pulse 58, temperature 98.7 degrees Fahrenheit. HEENT: She is normocephalic. EOMs intact. PERRLA. Throat clear. Lungs: Clear to auscultation and percussion without rhonchi, rales, or wheezes. Heart: Irregularly irregular without murmurs, gallops, or friction rubs other than that she has had aortic valve replacement and you can hear the click. Abdomen: Soft. Active bowel sounds. No organomegaly or tenderness. Extremities: The patient still has some pedal edema. Weight has not changed appreciably. She may have lost about a pound and a half but when she first came in she actually weighed less. ASSESSMENT: 1. Atrial fibrillation with rapid ventricular response and is symptomatic. 2. Mild congestive heart failure. 3. Adult-onset diabetes mellitus. 4. Coagulopathy now improving after holding warfarin. PLAN: Possible cardioversion tomorrow and try to get her in for radiofrequency ablation. May have to go back on her Coumadin soon but she is still just a little bit above therapeutic today.
[2016-12-05] MEDS: PRAVACHOL PO SCH (21:00)
[2016-12-05] MEDS: XALATAN 0.005% OPH SOLN BOTH EYES SCH (21:00)
[2016-12-05] MEDS ORDERED: COUMADIN PO SCH (21:00)
[2016-12-05] MEDS: TYLENOL PO PRN (21:02)
[2016-12-06 05:31] LABS: MANUAL DIFF NEEDED? NO
[2016-12-06 05:49] LABS: BASO% 0.3 % (0.0-0.8); EOS# 0.35 X1000 (0.0-0.7); EOS% 4.8 % (0.0-10.0); HEMOGLOBIN 11.4 g/dL (12.0-16.0); IMM GRAN# 0.02 X1000 (0.0-0.04); IMM GRAN% 0.3 % (0.0-0.5); LYMPH# 1.62 X1000 (1.2-3.4); MCH 30.9 PG (27-31); MCHC 32.6 g/dL (33-37); MCV 94.9 FL (81-99); MONO# 0.76 X1000 (0.11-0.59); MONO% 10.3 % (1.7-9.3); MPV 10.1 FL (7.4-10.4); NEUT% 62.3 % (42.2-75.2); PLT 242 X1000 (130-400); RBC 3.69 XMIL (4.2-5.4)
[2016-12-06] MEDS: HUMULIN R SUBQ SCH ×4 (06:06→22:13)
[2016-12-06 06:28] LABS: INR 1.98; PROTIME 19.9 Seconds (9.2-11.7)
[2016-12-06 06:42] LABS: AGAP 11; BUN 6 mg/dL (8-22); CALCIUM 8.5 mg/dL (8.8-10.2); CHLORIDE 102 mmol/L (98-107); COSMO 277; POTASSIUM 4.1 mmol/L (3.5-5.1); SODIUM 136 mmol/L (136-145); TCO2 23 mmol/L (25-35)
[2016-12-06] MEDS: ALDACTONE PO SCH (08:32)
[2016-12-06] MEDS: KLOR-CON PO SCH (08:32)
[2016-12-06] MEDS ORDERED: LOVENOX SUBQ ONE (08:50)
[2016-12-06] MEDS ORDERED: COUMADIN PO ONE (08:51)
[2016-12-06] MEDS ORDERED: ESTRADIOL 0.1 MG/24 HR TD SCH (09:00)
--- NOTE | 2016-12-06 09:01 | PROGRESS NOTE ---
DATE: 12/06/2016 SUBJECTIVE: The patient says she feels alright. She does not have any chest pains at this time. OBJECTIVE: Vital Signs: Blood pressure is 128/81. Pulse rate is in the 130s to 150s and irregularly irregular. Temperature is 98.4 degrees Fahrenheit. Respirations are 18 per minute. HEENT: She is normocephalic intact. PERRLA. Throat clear. Lungs: Clear to auscultation and percussion without rhonchi, rales, or wheezes. Heart: Irregularly irregular and tachycardic. Abdomen: Soft. Active bowel sounds. No organomegaly or tenderness. Neurological: Intact grossly. ASSESSMENT: 1. Atrial fibrillation with rapid ventricular response. 2. Mild congestive heart failure. 3. Adult-onset diabetes mellitus (AODM). 4. Coagulopathy. PLAN: For TENA cardioversion today. Please note her INR was 1.98. Dr. Marti had started her back on 2 mg of warfarin at bedtime in his orders, but the 2 mg was an error, and the notes for her home medications, she actually takes 6 mg at bedtime, and then on 2 days of the week, she takes 9 mg. She had been on some antibiotics recently, and that is probably what elevated her INR and prothrombin time. I am going to start her back on 7 mg of warfarin at bedtime, as that will give almost the exact same dosage of warfarin per week as the way she was taking it, and she will not have to vary it so much.
[2016-12-06] MEDS: CARDIZEM 100 MG/NS 100 ML IV SCH ×2 (09:30→20:03)
[2016-12-06] MEDS ORDERED: XYLOCAINE 4% TOPICAL SOLUTION ONE (13:01)
[2016-12-06] MEDS ORDERED: SODIUM CHLORIDE 0.9% 10 ML ONE (13:01)
[2016-12-06] MEDS ORDERED: HURRICAINE SPRAY (DOSE) ONE (13:01)
[2016-12-06] MEDS ORDERED: XYLOCAINE 2% VISCOUS ONE (13:01)
[2016-12-06] MEDS ORDERED: NS 1,000 ML ONE (13:11)
[2016-12-06] MEDS ORDERED: CLAVE ANES SET 100 IN 11965 ONE (13:11)
[2016-12-06] MEDS ORDERED: CLAVE TWINSITE 32 IN 11959 ONE (13:11)
[2016-12-06] MEDS ORDERED: LOPRESSOR ONE (13:40)
--- NOTE | 2016-12-06 14:02 | CARDIAC CATH REPORT ---
DATE: 12/06/2016 PROCEDURE PERFORMED: Direct current cardioversion. INDICATION: Persistent atrial fibrillation. DESCRIPTION OF PROCEDURE: The patient was brought to the cardiac laborer [facility]. We first performed a transesophageal echocardiogram under Anesthesia's assistance, Dr. Streeter. We found no evidence of thrombus. She was cleared for the cardioversion procedure. The pads were positioned in anterior posterior location. She received a single synchronized countershock to the chest cage of 150 downs per second. We used a biphasic system. She converted to sinus rhythm. We gave her 5 mg of metoprolol IV, and we kept her on her Cardizem drip. The patient woke up from the effects of the anesthetic without deficit. SUMMARY: This was a successful cardioversion from atrial fibrillation into sinus rhythm. RECOMMENDATIONS: The patient will be maintained on present medical therapy, and she will be evaluated by Dr. José Godwin from [facility] for possible ablation and implantation of a permanent pacemaker.
[2016-12-06] MEDS ORDERED: DIPRIVAN 1% ONE (14:03)
[2016-12-06] MEDS ORDERED: VERSED ONE (14:03)
--- NOTE | 2016-12-06 14:06 | ECHO REPORT ---
ORDER DATE: 12/06/2016 PHYSICIAN: Dr. Recio REQUESTING PHYSICIAN: CLINICAL INDICATIONS: The patient is with persistent atrial fibrillation, rule out thrombus. Her ProTime became slightly subtherapeutic. PROCEDURE: Transesophageal echocardiography. DESCRIPTION: The patient was brought to the cardiac lab[facility]. Her throat was anesthetized with Hurricaine and viscous lidocaine. She also received Versed and propofol under the anesthesia services of Dr. Streeter. The patient was intubated without difficulty. Multiple views of the cardiac structure were obtained. SUMMARY OF MAIN FINDINGS: The left atrium is enlarged. The left atrial appendage was also well visualized. It shows diminished velocities in the order of 20 cm per second or less. It also shows a fair amount of spontaneous echocontrast; however, there is no definite thrombus visualized. The interatrial septum is intact. The right atrium is unremarkable. The right ventricle is normal. The left ventricle shows normal function. The mitral valve shows a moderate degree of regurgitation. The aortic valve is a prosthetic tissue valve, opens normally. Color flow mapping is unremarkable. There is no stenosis. The descending thoracic aorta shows no evidence of any significant plaque. Pulmonic valve is unremarkable. SUMMARY: This transesophageal echocardiographic study is negative for thrombus. Cardioversion can be performed at a relatively low risk of stroke.
[2016-12-06] MEDS ORDERED: ROMAZICON (DOSE) ONE (14:12)
[2016-12-06] MEDS ORDERED: XYLOCAINE-MPF 2% ONE (14:13)
[2016-12-06] MEDS ORDERED: COUMADIN PO SCH ×2 (21:00)
[2016-12-06] MEDS: ZOFRAN ODT PO PRN (22:13)
[2016-12-06] MEDS: PRAVACHOL PO SCH (22:13)
[2016-12-06] MEDS: SYMBICORT 160/4.5 MICROGM INHALER INH SCH (22:15)
[2016-12-06] MEDS: XALATAN 0.005% OPH SOLN BOTH EYES SCH (22:15)
[2016-12-07] MEDS: CARDIZEM 100 MG/NS 100 ML IV SCH (03:48)
[2016-12-07 06:00] LABS: INR 2.85; PROTIME 28.5 Seconds (9.2-11.7)
[2016-12-07] MEDS: HUMULIN R SUBQ SCH (06:19)
[2016-12-07 07:39] VITALS: BP 115/57
[2016-12-07] MEDS ORDERED: TOPROL XL PO SCH (09:00)
[2016-12-07] MEDS: ALDACTONE PO SCH (09:08)
[2016-12-07] MEDS: KLOR-CON PO SCH (09:08)
--- NOTE | 2016-12-07 09:13 | PROGRESS NOTE ---
DATE: 12/07/2016 SUBJECTIVE: The patient states that she is feeling well bit better. She was cardioverted yesterday. Still is on diltiazem drip as apparently she was still tachycardic after she was converted. Cardiology is trying to arrange for her to have radiofrequency ablation as she has had several cardioversions and I do believe that is what she needs. OBJECTIVE: Vital Signs: Blood pressure is 115/57, respirations 21, pulse 80, temperature 99 degrees Fahrenheit. HEENT: She is normocephalic. EOMs intact. PERRLA. Throat clear. Lungs: Clear to auscultation and percussion without rhonchi, rales, or wheezes. Heart: Regular rate and rhythm without murmurs, gallops, or friction rubs, on a diltiazem drip. Abdomen: Soft. Active bowel sounds. No organomegaly or tenderness. Neurological: Examination is intact grossly. Laboratory Data: Her INR is back up to 2.85 after increasing her Coumadin to the level where she had been on with her previous dosage of Coumadin. Because of that, I am going to decrease her Coumadin slightly to regulate this as she had a 1.98 yesterday, 2.85 today. She had told me that she was taking 6 mg of her warfarin at night except for 2 nights a week where she took 9 so I converted her to 7. I think is going to be too much for her. I am going to decrease this back down to 6. ASSESSMENT: 1. Atrial fibrillation with rapid ventricular response. 2. Mild congestive heart failure, probably systolic. 3. Coagulopathy. 4. Adult onset diabetes mellitus. PLAN: Made changes in Coumadin as above and we will see what the thermostatic controls supervisor plans for eventual radiofrequency ablation. It should be noted that she has been on generic warfarin and I prefer brand name Coumadin and this may be why her INR has gone up again.
[2016-12-07] MEDS: SYMBICORT 160/4.5 MICROGM INHALER INH SCH (09:37)
[2016-12-07] MEDS: ZOFRAN ODT PO PRN (10:36)
--- NOTE | 2016-12-07 15:19 | DISCHARGE SUMMARY ---
ADMISSION DATE: 12/03/2016 DISCHARGE DATE: 12/07/2016 Please note that I had seen her earlier today and had not talked with Cardiology at the time and I decided to keep her in the hospital and put a note on at that time until I could talk with Cardiology. I did talk with Dr. Recio who said that he felt that she could go home now. He had her on a Cardizem drip and still is but he felt that we could change her back over to oral medication. He has made arrangements for her to be seen with Dr. Godwin for possible radiofrequency ablation. We will go ahead and discharge today. FINAL DIAGNOSES: 1. Atrial fibrillation with rapid ventricular response. 2. Mild systolic congestive heart failure. 3. Adult-onset diabetes mellitus. 4. Status post aortic valve replacement. Patient has now been converted to normal sinus rhythm by cardioversion yesterday. HISTORY OF PRESENT ILLNESS: The patient is a 66-year-old, white female who was being seen on the day of admission by Dr. Recio in his office and he knows that her heart rate was very fast. He also thought that she was in some heart failure and her proBNP was up a little over 1700. Chest x-ray was clear. She did have a little bit of swelling in her lower extremities. PAST HISTORY: 1. Aortic valve replacement. 2. Diabetes mellitus. 3. Hypertension. 4. Glaucoma. 5. Chronic kidney disease. 6. Obstructive sleep apnea. 7. 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 HOSPITAL COURSE: The patient was placed on a Cardizem drip to control her rate and it seems to be doing better now. I am going to send her home on her regular medications which will include oral diltiazem. She will also be on Lasix, Glucotrol, clonidine. Please see list. We will make sure she has the information for her appointment with Dr. Godwin. I would like to see her back in the office in the next couple of weeks. PHYSICAL EXAMINATION: HEENT: She is normocephalic, atraumatic. PERRLA. Throat clear. Lungs: Clear to auscultation and percussion without rhonchi, rales, or wheezes. Heart : Regular rate and rhythm without murmurs, gallops, or friction rubs. Abdomen: Soft. Active bowel sounds. No organomegaly or tenderness. Neurological Examination: Intact grossly. MTDD
[2016-12-07] MEDS ORDERED: COUMADIN PO SCH (21:00)
== END 2016-12-07 12:12 | disposition home or self-care (01) | DRG 308 ==
PROVIDERS: ADMIT Emergency Medicine; ATTEND Emergency Medicine
PROC: 5A2204Z Restoration of Cardiac Rhythm, Single (ICD-10-PCS; principal; 2016-12-06)
PROC: B24BZZ4 Ultrasonography of Heart with Aorta, Transesophageal (ICD-10-PCS; 2016-12-06)
DX: I48.0 Paroxysmal atrial fibrillation (principal); I50.43 Acute on chronic combined systolic (congestive) and diastolic (congestive) heart failure; E11.22 Type 2 diabetes mellitus with diabetic chronic kidney disease; J44.9 Chronic obstructive pulmonary disease, unspecified; I13.0 Hypertensive heart and chronic kidney disease with heart failure and stage 1 through stage 4 chronic kidney disease, or unspecified chronic kidney disease; E66.3 Overweight; I34.0 Nonrheumatic mitral (valve) insufficiency; J45.909 Unspecified asthma, uncomplicated; Z68.32 Body mass index [BMI] 32.0-32.9, adult; I25.10 Atherosclerotic heart disease of native coronary artery without angina pectoris; E78.5 Hyperlipidemia, unspecified; Z91.14 Patient's other noncompliance with medication regimen; R79.1 Abnormal coagulation profile; N18.9 Chronic kidney disease, unspecified; H40.9 Unspecified glaucoma; G47.33 Obstructive sleep apnea (adult) (pediatric); Z82.49 Family history of ischemic heart disease and other diseases of the circulatory system; Z83.3 Family history of diabetes mellitus; Z80.42 Family history of malignant neoplasm of prostate; Z95.2 Presence of prosthetic heart valve; Z79.01 Long term (current) use of anticoagulants; Z79.84 Long term (current) use of oral hypoglycemic drugs; Z79.82 Long term (current) use of aspirin; Z79.890 Hormone replacement therapy; Z79.4 Long term (current) use of insulin; Z79.51 Long term (current) use of inhaled steroids
CPT/HCPCS: 71020; 80048; 80053; 82948; 82985; 83880; 85025; 85610; 92960; 93005; 93312; J1650; J2250; J7030; 94640-76